=== PATIENT | male | born 1950 | race African-American/Black ===

== ENCOUNTER 2021-11-15 13:39 | Inpatient (IN) | payer OTHER ==
[2021-11-15 14:10] LABS: Absolute Lymphocytes (CBC) 1.2 K/uL (0.7-4.9); Hematocrit 37.8 % (39.6-49.0); Lymphocytes % 13.1 % (15.3-44.8); MCV 86.4 fL (80-100); MPV 9.3 fL (7.6-11.3); RBC Red Blood Cell Count 4.38 M/uL (4.33-5.43)
[2021-11-15 14:12] LABS: Protime INR 1.16
--- NOTE | 2021-11-15 14:29 | RAD REPORT ---
EXAM DESCRIPTION: RAD - Chest Single View - 11/15/2021 2:20 pm CLINICAL HISTORY: syncope COMPARISON: No comparisons FINDINGS: Lines: None. Lungs: No evidence of edema or pneumonia. Pleural: No significant pleural effusions or pneumothorax. Cardiac: The heart size is within normal limits. Bones: No acute fractures. Other: IMPRESSION: No acute cardiopulmonary disease.
[2021-11-15 14:34] LABS: Albumin 3.4 g/dL (3.4-5.0); Bilirubin Direct 0.2 mg/dL (0-0.2); Bilirubin Total 0.5 mg/dL (0.2-1.0); Magnesium 2.2 mg/dL (1.8-2.4); Protein, Total 6.8 g/dL (6.4-8.2)
[2021-11-15 14:35] LABS: Potassium 2.8 mmol/L (3.5-5.1); Troponin High Sensitivity 159.9 pg/mL (<58.9)
[2021-11-15] MEDS ORDERED: NA CHLORIDE 0.9% 1,000 ML ONE (15:02)
--- NOTE | 2021-11-15 15:20 | RAD REPORT ---
EXAM DESCRIPTION: CT - Head Brain Wo Cont - 11/15/2021 3:08 pm CLINICAL HISTORY: Syncope, simple, normal neuro exam COMPARISON: No comparisons TECHNIQUE: All CT scans are performed using dose optimization technique as appropriate and may inclu de automated exposure control or mA/KV adjustment according to patient size. FINDINGS: No intracranial hemorrhage, hydrocephalus or extra-axial fluid collection.No areas of brai n edema or evidence of midline shift. The paranasal sinuses and mastoids are clear. The calvarium is intact. IMPRESSION: No acute intracranial abnormality.
[2021-11-15 16:06] LABS: Urine Blood Trace-lysed (Negative); Urine Glucose Negative (Negative); Urine Protein Trace (Negative); Urine Specific Gravity 1.015 (1.005-1.030); Urine pH 6.5 (5.0-7.0)
[2021-11-15 16:22] LABS: Urine Bacteria <20 /HPF (NONE SEEN); Urine Mucus LIGHT /HPF (NONE SEEN); Urine RBC <5 /HPF (NONE SEEN)
--- NOTE | 2021-11-15 16:22 | EDPHYS ---
Physician Documentation [facility] Name: Colten Nicole Age: 71 yrs Sex: Male : 1950 Arrival Date: 11/15/2021 Time: 13:43 Bed 14 Private MD: ED Physician Justus Boudreaux HPI: 11/15 13:55 This 71 yrs old Black Male presents to ER via Ambulatory with complaints of Syncope. cp 13:55 The patient has experienced syncope, collapsed, lost consciousness. Onset: The cp symptoms/episode began/occurred just prior to arrival. Duration: This was a single episode, that lasted an unknown period of time. 13:55 Context: the episode(s) was witnessed, by family, , occurred outdoors, on beach, cp occurred while the patient was walking, back to vehicle. Just prior to the episode the patient experienced no apparent symptoms. 13:55 Associated injury: The patient did not suffer any apparent associated injury. cp Associated signs and symptoms: Pertinent positives: urinary incontinence, Pertinent negatives: abdominal pain, chest pain, confusion, diarrhea, dizziness, headache, palpitations, shortness of breath, weakness. Current symptoms: Currently, the patient is not experiencing any symptoms, the patient feels back to baseline. Historical: - Allergies: 14:37 No Known Allergies; ph - Home Meds: 14:37 telmisartan 80 mg oral tab [Active]; diltiazem HCl 120 mg Oral tab [Active]; sucralfate ph 1 gram Oral tab [Active]; omeprazole 40 mg Oral cpDR [Active]; simvastatin 10 mg Oral tab [Active]; anastrozole 1 mg oral tab [Active]; - PMHx: 14:37 Hypertensive disorder; Hypercholesterolemia; ph - Immunization history:: Adult Immunizations unknown. - Social history:: Smoking status: Patient denies any tobacco usage or history of. Patient/guardian denies using alcohol. ROS: 14:00 Constitutional: Negative for body aches, chills, fever, poor PO intake. cp 14:00 Cardiovascular: Negative for chest pain, edema, palpitations. cp 14:00 Respiratory: Negative for cough, shortness of breath, wheezing. 14:00 Abdomen/GI: Negative for abdominal pain, nausea, vomiting, and diarrhea. Exam: 14:05 Constitutional: The patient appears in no acute distress, alert, awake, cp non-diaphoretic, non-toxic, well developed, well nourished. 14:05 Head/Face: Normocephalic, atraumatic. cp 14:05 Eyes: Periorbital structures: appear normal, Pupils: equal, round, and reactive to light and accomodation, Extraocular movements: intact throughout, Conjunctiva: normal, no exudate, no injection, Sclera: no appreciated abnormality, Lids and lashes: appear normal, bilaterally. 14:05 ENT: External ear(s): are unremarkable, Ear canal(s): are normal, clear, TM's: dullness, bilaterally, Nose: is normal, Mouth: Lips: moist, Oral mucosa: pink and intact, moist, Posterior pharynx: Airway: no evidence of obstruction, patent. 14:05 Neck: ROM/movement: is normal, is supple, without pain, no range of motions limitations. 14:05 Chest/axilla: Inspection: normal, Palpation: is normal, no crepitus, no tenderness. 14:05 Cardiovascular: Rate: normal, Rhythm: regular, Edema: is not appreciated, JVD: is not appreciated. 14:05 Respiratory: the patient does not display signs of respiratory distress, Respirations: normal, no use of accessory muscles, no retractions, labored breathing, is not present, Breath sounds: are clear throughout, no decreased breath sounds, no stridor, no wheezing. 14:05 Abdomen/GI: Inspection: abdomen appears normal, Bowel sounds: active, all quadrants, Palpation: abdomen is soft and non-tender, in all quadrants, rebound tenderness, is not appreciated, voluntary guarding, is not appreciated, involuntary guarding, is not appreciated. 14:05 Back: pain, is absent, ROM is normal. 14:05 Neuro: Orientation: to person, place \\T\\ time. Mentation: is normal, Cerebellar function: is grossly normal, Motor: moves all fours, strength is normal, Sensation: is normal. 14:37 ECG was reviewed by the Attending Physician. cp 16:30 : Rectal exam: Rectal tone: normal, Stool: brown, Guaiac testing: results were cp negative for occult blood. Vital Signs: 13:44 BP 116 / 55; Pulse 78; Resp 18; Temp 98.8; Pulse Ox 96% on R/A; ph 14:43 BP 120 / 64; Pulse 73; Resp 18; Pulse Ox 98% on R/A; ph 16:00 BP 122 / 65; Pulse 72; Resp 18; Pulse Ox 98% on R/A; ph 16:24 Weight 97.52 kg; Height 5 ft. 9 in. (175.26 cm); ph 17:04 BP 126 / 62; Pulse 87; Resp 16; Pulse Ox 99% on R/A; ph 18:00 BP 123 / 58; Pulse 79; Resp 18; Pulse Ox 98% on R/A; ph 16:24 Body Mass Index 31.75 (97.52 kg, 175.26 cm) ph MDM: 13:54 Patient medically screened. cp 14:00 Differential Diagnosis: aortic aneurysm, cardiac arrhythmia, GI bleed, seizure, sepsis, cp vasovagal episode. 16:20 Data reviewed: vital signs, nurses notes, lab test result(s), EKG, radiologic studies, cp CT scan, plain films. 16:20 Test interpretation: by ED physician or midlevel provider: ECG, plain radiologic cp studies. Counseling: I had a detailed discussion with the patient and/or guardian regarding: the historical points, exam findings, and any diagnostic results supporting the discharge/admit diagnosis, lab results, radiology results, the need for further work-up and treatment in the hospital. 11/15 13:54 Order name: Basic Metabolic Panel; Complete Time: 14:48 cp 11/15 14:48 Interpretation: Normal except: K 2.8; BUN 27; CRE 2.22; GFR 31. cp 11/15 13:54 Order name: CBC with Diff; Complete Time: 14:48 cp 11/15 13:54 Order name: LFT's; Complete Time: 14:48 cp 11/15 13:54 Order name: Magnesium; Complete Time: 14:48 cp 11/15 13:54 Order name: NT PRO-BNP; Complete Time: 14:48 cp 11/15 13:54 Order name: PT-INR; Complete Time: 14:48 cp 11/15 13:54 Order name: Troponin HS; Complete Time: 14:48 cp 11/15 14:48 Interpretation: Abnormal: Troponin HS 159.9. cp 11/15 13:54 Order name: Urine Microscopic Only cp 11/15 13:54 Order name: Influenza Screen (a \\T\\ B); Complete Time: 14:48 11/15 13:54 Order name: COVID-19 SARS RT PCR (Document "Date of Onset" if Symptomatic); Complete cp Time: 16:02 11/15 16:06 Order name: Urine Dipstick-Ancillary; Complete Time: 16:14 [facility] 11/15 17:10 Order name: Creatine Phosphokinase [facility] 11/15 17:10 Order name: C-Reactive Protein [facility] 11/15 17:10 Order name: C-Reactive Protein [facility] 11/15 13:54 Order name: XRAY Chest (1 view); Complete Time: 14:48 11/15 14:49 Order name: CT Head Brain wo Cont; Complete Time: 15:22 11/15 15:22 Interpretation: Report reviewed. 11/15 17:10 Order name: CBC with Automated Diff [facility] 11/15 17:10 Order name: CBC with Automated Diff [facility] 11/15 17:10 Order name: Comprehensive Metabolic Panel [facility] 11/15 17:10 Order name: Comprehensive Metabolic Panel [facility] 11/15 17:10 Order name: Lipid Profile [facility] 11/15 17:10 Order name: Lipid Profile [facility] 11/15 17:13 Order name: Echo with Doppler [facility] 11/15 17:13 Order name: Magnesium [facility] 11/15 17:13 Order name: Thyroid Stimulating Hormone [facility] 11/15 17:13 Order name: UR CREAT [facility] 11/15 17:13 Order name: UR SODIUM [facility] 11/15 17:13 Order name: Troponin High Sensitivity [facility] 11/15 17:13 Order name: Troponin High Sensitivity [facility] 11/15 17:13 Order name: Troponin High Sensitivity [facility] 11/15 13:54 Order name: EKG; Complete Time: 13:55 11/15 13:54 Order name: Cardiac monitoring; Complete Time: 14:17 11/15 13:54 Order name: EKG - Nurse/Tech; Complete Time: 14:37 11/15 13:54 Order name: IV Saline Lock; Complete Time: 14:17 11/15 13:54 Order name: Labs collected and sent; Complete Time: 14:17 11/15 13:54 Order name: O2 Per Protocol; Complete Time: 14:17 11/15 13:54 Order name: O2 Sat Monitoring; Complete Time: 14:16 cp 11/15 13:54 Order name: Urine Dipstick-Ancillary (obtain specimen); Complete Time: 16:18 cp 11/15 17:10 Order name: CONS Physician Consult [facility] 11/15 17:10 Order name: Heart Healthy [facility] EC:37 Rate is 76 beats/min. Rhythm is regular. HI interval is prolonged at 220 msec. QRS cp interval is prolonged at 106 msec. QT interval is normal. T waves are Inverted in lead aVR. Interpreted by me. Reviewed by me. Administered Medications: 16:18 Drug: NS 0.9% 1000 ml Route: IV; Rate: 75 ml/hr; Site: left antecubital; ph 18:52 Follow up: Response: No adverse reaction; IV Status: Infusion continued upon admission ph 16:18 Drug: NS 0.9% 500 ml Route: IV; Rate: bolus; Site: left antecubital; ph 18:51 Follow up: Response: No adverse reaction; IV Status: Completed infusion; IV Intake: ph 500ml 16:50 Drug: Aspirin Chewable Tablet 324 mg Route: PO; ph 18:51 Follow up: Response: No adverse reaction ph 16:50 Drug: Potassium Chloride 20 mEq Route: IV; Rate: calculated rate; Site: left ph antecubital; 18:50 Follow up: Response: No adverse reaction; IV Status: Completed infusion ph 16:50 Drug: Potassium Effervescent Tablet 50 mEq Route: PO; ph 18:51 Follow up: Response: No adverse reaction ph 16:50 Drug: Lovenox (enoxaparin) 1 mg/kg Route: Sub-Q; Site: right lower abdomen; ph 18:50 Follow up: Response: No adverse reaction ph Disposition Summary: 11/15/21 16:22 Hospitalization Ordered Hospitalization Status: Inpatient Admission cp Provider: Shanika Gant cp Location: Telemetry/MedSurg (Inpatient) cp Condition: Stable cp Problem: new cp Symptoms: have improved cp Bed/Room Type: Standard cp Room Assignment: 417(11/15/21 18:19) bd Diagnosis - Syncope cp - Acute kidney failure, unspecified cp Forms: - Medication Reconciliation Form cp - SBAR form cp Addendum: 11/17/2021 07:12 Co-signature as Attending Physician, Justus tovar Signatures: Dispatcher [employer] EDBrittany Ernst Roman, MD MD rn [place], TOOL DESIGN CHECKER-C TOOL DESIGN CHECKER-Cla1 Ana Rosa Guevara RN RN ph Radha, Lenny, SELMA HAHN cp Corrections: (The following items were deleted from the chart) 11/15 18:19 16:22 cp bd
--- NOTE | 2021-11-15 16:22 | ER ---
Nurse's Notes [facility] Name: Colten Nicole Age: 71 yrs Sex: Male : 1950 Arrival Date: 11/15/2021 Time: 13:43 Bed 14 Private MD: Diagnosis: Syncope;Acute kidney failure, unspecified Presentation: 11/15 13:44 Chief complaint: EMS states: Pt had a witnessed [place]opal [place], ph friend states that he was feeling lightheaded so they were trying to get into the car in the air conditioning when he passed out. Initial BP 86/52, 18 G IV started to LAC and fluids given, BP REBEAMER 120/68. Coronavirus screen: Vaccine status: Patient reports receiving the 2nd dose of the covid vaccine. Ebola Screen: No symptoms or risks identified at this time. Initial Sepsis Screen: Does the patient meet any 2 criteria? No. Patient's initial sepsis screen is negative. Does the patient have a suspected source of infection? No. Patient's initial sepsis screen is negative. Risk Assessment: Do you want to hurt yourself or someone else? Patient reports no desire to harm self or others. 13:44 Method Of Arrival: Ambulatory ph 13:44 Acuity: TAWNY 3 ph 14:43 Onset of symptoms was November 15, 2021. ph Historical: - Allergies: 14:37 No Known Allergies; ph - Home Meds: 14:37 telmisartan 80 mg oral tab [Active]; diltiazem HCl 120 mg Oral tab [Active]; sucralfate ph 1 gram Oral tab [Active]; omeprazole 40 mg Oral cpDR [Active]; simvastatin 10 mg Oral tab [Active]; anastrozole 1 mg oral tab [Active]; - PMHx: 14:37 Hypertensive disorder; Hypercholesterolemia; ph - Immunization history:: Adult Immunizations unknown. - Social history:: Smoking status: Patient denies any tobacco usage or history of. Patient/guardian denies using alcohol. Screenin:41 Abuse screen: Denies threats or abuse. Denies injuries from another. Nutritional ph screening: No deficits noted. Tuberculosis screening: No symptoms or risk factors identified. Fall Risk None identified. Assessment: 14:43 General: Appears in no apparent distress. comfortable, Behavior is calm, cooperative, ph appropriate for age, Denies fever, feeling ill. Pain: Denies pain. Neuro: Level of Consciousness is awake, alert, obeys commands, Oriented to person, place, time, situation. Cardiovascular: Reports syncope, Denies chest pain, nausea, shortness of breath, Capillary refill < 3 seconds in bilateral fingers Patient's skin is warm and dry. Respiratory: Airway is patent Respiratory effort is even, unlabored, Respiratory pattern is regular, symmetrical. GI: No signs and/or symptoms were reported involving the gastrointestinal system. EENT: Reports nasal congestion nasal discharge. Derm: Skin is intact, is healthy with good turgor, Skin is pink, warm \T\ dry. 16:30 Reassessment: Patient appears in no apparent distress at this time. Patient and/or ph family updated on plan of care and expected duration. Pain level reassessed. Patient is alert, oriented x 3, equal unlabored respirations, skin warm/dry/pink. 18:00 Reassessment: Patient appears in no apparent distress at this time. Patient and/or ph family updated on plan of care and expected duration. Pain level reassessed. Patient is alert, oriented x 3, equal unlabored respirations, skin warm/dry/pink. Awaiting room assignment, family at bedside Patient denies pain at this time. 18:49 Cardiovascular: Rhythm is regular. ph Vital Signs: 13:44 BP 116 / 55; Pulse 78; Resp 18; Temp 98.8; Pulse Ox 96% on R/A; ph 14:43 BP 120 / 64; Pulse 73; Resp 18; Pulse Ox 98% on R/A; ph 16:00 BP 122 / 65; Pulse 72; Resp 18; Pulse Ox 98% on R/A; ph 16:24 Weight 97.52 kg; Height 5 ft. 9 in. (175.26 cm); ph 17:04 BP 126 / 62; Pulse 87; Resp 16; Pulse Ox 99% on R/A; ph 18:00 BP 123 / 58; Pulse 79; Resp 18; Pulse Ox 98% on R/A; ph 16:24 Body Mass Index 31.75 (97.52 kg, 175.26 cm) ph ED Course: 13:43 Patient arrived in ED. ph 13:47 Lenny Garcia PA is PHCP. cp 13:47 Justus Boudreaux MD is Attending Physician. cp 13:51 Triage completed. ph 14:16 Ana Rosa Guevara, RN is Primary Nurse. ph 14:22 XRAY Chest (1 view) In Process Unspecified. EDMS 14:37 Arm band placed on Patient placed in an exam room. ph 14:38 EKG done, by ED staff, reviewed by Lenny HAHN. jw7 14:41 Patient has correct armband on for positive identification. Placed in gown. Bed in low ph position. Call light in reach. Side rails up X2. Client placed on continuous cardiac and pulse oximetry monitoring. NIBP monitoring applied. 15:00 Maintain EMS IV. Dressing intact. Good blood return noted. Site clean \T\ dry. Gauge \T\ ph site: 18 LAC. IV Flushed left antecubital with 5 ml normal saline. 15:10 CT Head Brain wo Cont In Process Unspecified. EDMS 16:21 Shanika Gant MD is Hospitalizing Provider. cp 18:48 No provider procedures requiring assistance completed. Patient admitted, IV remains in ph place. Administered Medications: 16:18 Drug: NS 0.9% 1000 ml Route: IV; Rate: 75 ml/hr; Site: left antecubital; ph 18:52 Follow up: Response: No adverse reaction; IV Status: Infusion continued upon admission ph 16:18 Drug: NS 0.9% 500 ml Route: IV; Rate: bolus; Site: left antecubital; ph 18:51 Follow up: Response: No adverse reaction; IV Status: Completed infusion; IV Intake: ph 500ml 16:50 Drug: Aspirin Chewable Tablet 324 mg Route: PO; ph 18:51 Follow up: Response: No adverse reaction ph 16:50 Drug: Potassium Chloride 20 mEq Route: IV; Rate: calculated rate; Site: left ph antecubital; 18:50 Follow up: Response: No adverse reaction; IV Status: Completed infusion ph 16:50 Drug: Potassium Effervescent Tablet 50 mEq Route: PO; ph 18:51 Follow up: Response: No adverse reaction ph 16:50 Drug: Lovenox (enoxaparin) 1 mg/kg Route: Sub-Q; Site: right lower abdomen; ph 18:50 Follow up: Response: No adverse reaction ph Medication: 14:41 VIS not applicable for this client. ph Intake: 18:51 IV: 500ml; Total: 500ml. ph Outcome: 16:22 Decision to Hospitalize by Provider. cp 20:20 Admitted to Med/surg accompanied by tech. ke1 20:20 Condition: stable 20:20 Instructed on the need for admit. 20:21 Patient left the ED. ke1 Signatures: Dispatcher [employer] Ana Rosa Zuleta, RN RN ph Lenny Garcia PA PA cp Waits, Jodi [id number] Kenny Cervantes RN RN ke1
[2021-11-15] MEDS ORDERED: ASPIRIN 81 MG CHEWABLE TABLET ONE (16:36)
[2021-11-15] MEDS ORDERED: KCL 20 MEQ/100 mL IVPB 100 ML IV ONE (16:36)
[2021-11-15] MEDS ORDERED: ENOXAPARIN 100 MG/ML SYR SQ ONE (16:37)
--- NOTE | 2021-11-15 16:57 | P.HP ---
Certification for Inpatient With expected LOS: >2 Midnights Patient will require the following post-hospital care: None Practitioner: I am a practitioner with admitting privileges, knowledge of patient current condition, hospital course, and medical plan of care. Services: Services provided to patient in accordance with Admission requirements found in Title 42 Section 412.3 of the Code of Federal Regulations Patient History Date of Service: 11/15/21 Reason for admission: Syncope History of Present Illness: 72-year-old AA male with past medical history of hypertension, hyperlipidemia and GERD prostate cancer s/p resection on hormonal therapy with anastrozole presented after developing [place]. Patient states he felt heat with flushing prior to passing out. He was on the ground for a few minutes as witnessed by the before arrival of EMS and he was brought to the emergency room. Per EMS report patient blood pressure was low with systolic in the 70s but improved with IV fluid and by the time of arrival in the ED blood pressure was in the 100s. EKG shows normal sinus rhythm with borderline first- degree AV block. Head CT was negative. He was noted with elevated creatinine to 2.2 potassium of 2.8. His troponin was mildly elevated at 159. COVID screen is positive. Patient is conversant denies any chest pain. He states he has been nasal congestion, decreased appetite and decreased p.o. intake since the last 1 week. He also admits to sore throat feeling. His also have similar sore throat feeling. He states his blood pressure medications include a diuretics. His home blood pressure meds have been reviewed today. He denies any prior history of cardiac disease. He denies any diarrhea. He states he has received 2 COVID shots as well as a booster. He has been admitted for syncope work-up having upper respiratory tract - Past Medical/Surgical History -: Hypertension -: Hyperlipidemia -: GERD -: Prostate cancer -: Prostate resection - Family History Family History: Reviewed- Non-Contributory - Social History Smoking Status: Never smoker Smoking therapy provided: No Patient receptive to therapy: No Alcohol use: No CD- Drugs: No Place of Residence: Home Review of Systems General: Sweats, Weakness, Malaise ENT: Throat Pain Respiratory: Cough, Dry Gastrointestinal: Nausea Physical Examination - Physical Exam General: Alert, In no apparent distress, Oriented x3, Obese HEENT: Atraumatic, Normocephalic, PERRLA Neck: Supple, 2+ carotid pulse no bruit, JVD not distended Respiratory: Clear to auscultation bilaterally, Normal air movement Cardiovascular: No edema, Regular rate/rhythm, Normal S1 S2 Gastrointestinal: Normal bowel sounds, Soft and benign, Non-distended Musculoskeletal: No clubbing, No swelling Integumentary: No rashes, No breakdown - Studies Laboratory Data (last 24 hrs) 11/15/21 13:59: PT 12.8 H, INR 1.16 11/15/21 13:59: WBC 9.5, Hgb 12.8 L, Hct 37.8 L, Plt Count 214 11/15/21 13:59: Sodium 136, Potassium 2.8 L*, BUN 27 H, Creatinine 2.22 H, Glucose 99, Magnesium 2.2, Total Bilirubin 0.5, AST 57 H, ALT 43, Alkaline Phosphatase 66 Microbiology Data (last 24 hrs): 11/15/21 14:00 Nasopharnyx Influenza Type A Antigen Screen - Final 11/15/21 14:00 Nasopharnyx Influenza Type B Antigen Screen - Final Assessment and Plan - Problems (Diagnosis) (1) Bronchitis due to COVID-19 virus Current Visit: Yes Status: Acute (2) Syncope and collapse Current Visit: Yes Status: Acute Discharge Plan: Home - Advance Directives Does patient have a Living Will: No Does patient have a Durable POA for Healthcare: No - Code Status/Comfort Care Code Status: Full Code Physician Review: Patient Assessed, Agree with Above Assessment and Plan Physician Review Additional Text: EKGnormal sinus rhythm, borderline first-degree AV block, no ST segment changes Head CTno acute intracranial abnormality Impression Acute COVID bronchitis Syncope Hypotensiondue to volume depletion in setting of blood pressure medication and diuretic use Acute kidney injury Hypokalemiadue to HCTZ use Elevated troponin GERD HLD History of prostate cancerstatus post resectionin remission Plan Will admit patient to inpatient status Will start gentle IV fluid with potassium replacement Obtain magnesium level replete Start empirical steroids Place in isolation DuoNebs as needed wheeze Hold blood pressure medications for now since significant hypotension during period of syncope Resume anastrozole for history of prostate cancer Subcutaneous Lovenox for DVT prophylaxis Formal cardiology consult in a.m. Obtain echocardiogram Advance directivefull code Time Spent Managing Pts Care (In Minutes): 70
[2021-11-15] MEDS ORDERED: MORPHINE 2 MG/ML SYR IV PRN (17:02)
[2021-11-15] MEDS ORDERED: ONDANSETRON 4 MG/2 ML VIAL IV PRN (17:02)
[2021-11-15] MEDS ORDERED: GUAIFENESIN/DM 5 ML UCUP PO PRN (17:08)
[2021-11-15] MEDS ORDERED: Oxycodone HCl/Acetaminophen 1 TAB TAB PO PRN (17:08)
[2021-11-15] MEDS ORDERED: HYDRALAZINE HCL 20 MG/ML VIAL IV PRN (17:08)
[2021-11-15] MEDS ORDERED: MELATONIN 5 MG TABLET PO PRN (17:08)
[2021-11-15] MEDS ORDERED: POTASSIUM 25 MEQ EFFERV TAB PO ONE (17:10)
[2021-11-15] MEDS: ENOXAPARIN 40 MG/0.4 ML SQ SCH (18:00)
[2021-11-15 19:56] VITALS: BMI 31.7
[2021-11-15 20:33] LABS: Troponin High Sensitivity 155.4 pg/mL (<58.9)
[2021-11-15] MEDS: GUAIFENESIN 600 MG SA TAB PO SCH (22:06)
[2021-11-15] MEDS: Ringers Lactate 1,000 ML IV SCH (22:06)
[2021-11-15] MEDS: FAMOTIDINE 20 MG/2 ML VIAL IV SCH (22:07)
[2021-11-15] MEDS: METHYLPREDNISOLONE 125 MG INJ IV SCH (22:07)
[2021-11-15 22:32] LABS: Magnesium 2.2 mg/dL (1.8-2.4); Thyroid Stimulating Hormone 2.24 uIU/mL (0.360-3.740)
[2021-11-16] MEDS: Ringers Lactate 1,000 ML IV SCH ×2 (05:43→10:00)
[2021-11-16 06:14] LABS: Absolute Lymphocytes (CBC) 0.9 K/uL (0.7-4.9); Lymphocytes % 17.2 % (15.3-44.8); MCV 85.2 fL (80-100); MPV 9.5 fL (7.6-11.3); RBC Red Blood Cell Count 4.46 M/uL (4.33-5.43)
[2021-11-16 06:30] LABS: Albumin 3.3 g/dL (3.4-5.0); Bilirubin Total 0.4 mg/dL (0.2-1.0); C-Reactive Protein 76.3 mg/L (<3.00); Potassium 3.8 mmol/L (3.5-5.1); Protein, Total 7.1 g/dL (6.4-8.2)
[2021-11-16] MEDS ORDERED: ASPIRIN EC 81 MG TAB PO SCH (09:00)
[2021-11-16] MEDS ORDERED: ANASTROZOLE 1 MG TAB PO SCH (09:00)
[2021-11-16] MEDS: GUAIFENESIN 600 MG SA TAB PO SCH (09:00)
[2021-11-16] MEDS ORDERED: POTASSIUM CL SA 10 MEQ TAB PO ONE (09:00)
[2021-11-16] MEDS: FAMOTIDINE 20 MG/2 ML VIAL IV SCH (09:00)
[2021-11-16] MEDS: METHYLPREDNISOLONE 125 MG INJ IV SCH (09:01)
[2021-11-16 10:28] VITALS: O2SAT 96
--- NOTE | 2021-11-16 12:48 | P.PN ---
Subjective Date of Service: 11/16/21 Chief Complaint: Syncope Subjective: No new changes, No C/O voiced, Improving Physical Examination - Vital Signs Temperature: 97.2 F Blood Pressure: 153/80 Pulse: 76 Respirations: 18 Pulse Ox (%): 96 - Studies Laboratory Data (last 24 hrs) 11/15/21 13:59: PT 12.8 H, INR 1.16 11/15/21 13:59: WBC 9.5, Hgb 12.8 L, Hct 37.8 L, Plt Count 214 11/15/21 13:59: Sodium 136, Potassium 2.8 L*, BUN 27 H, Creatinine 2.22 H, Glucose 99, Magnesium 2.2, Total Bilirubin 0.5, AST 57 H, ALT 43, Alkaline Phosphatase 66 Microbiology Data (last 24 hrs): 11/15/21 14:00 Nasopharnyx Influenza Type A Antigen Screen - Final 11/15/21 14:00 Nasopharnyx Influenza Type B Antigen Screen - Final Assessment And Plan - Current Problems (Diagnosis) (1) Bronchitis due to COVID-19 virus Current Visit: Yes Status: Acute (2) Syncope and collapse Current Visit: Yes Status: Acute Physician Review: Patient Assessed, Agree with Above Assessment and Plan Physician Review Additional Text: - Physical Exam General: Alert, In no apparent distress, Oriented x3, Obese HEENT: Atraumatic, Normocephalic, PERRLA Neck: Supple, 2+ carotid pulse no bruit, JVD not distended Respiratory: Clear to auscultation bilaterally, Normal air movement Cardiovascular: No edema, Regular rate/rhythm, Normal S1 S2 Gastrointestinal: Normal bowel sounds, Soft and benign, Non-distended Musculoskeletal: No clubbing, No swelling Integumentary: No rashes, No breakdown EKGnormal sinus rhythm, borderline first-degree AV block, no ST segment changes Head CTno acute intracranial abnormality Impression Acute COVID bronchitis Syncope Hypotensiondue to volume depletion in setting of blood pressure medication and diuretic use Acute kidney injury Hypokalemiadue to HCTZ use Elevated troponin GERD HLD History of prostate cancerstatus post resectionin remission Plan Clinically improving Evaluated by cardiology, follow pending echocardiogram Can resume blood pressure regimen since improved now Tolerating p.o. well Continue empirical Decadron for COVID Creatinine improved back to normal Plan for discharge if normal echo today
--- NOTE | 2021-11-16 15:26 | CON ---
Admitted to Dr. Gant with syncope. History Of Present Illness: The patient has a history of hypertension and dyslipidemia and has had s yncope before because of a stroke many years ago. This episode happened after he was dehydrated. It was sudden and lasted about 2 minutes. Did not have any symptoms before or after the syncope. It w as not before pre or postictal. Denied chest pain, nausea, vomiting, diaphoresis, PND, orthopnea, pe sultana edema, palpitations, syncopal. Past Medical History: As stated above. Allergies: NONE. Review of Systems: Negative. Social History: Negative. Family History: Negative. Medications: At home include diltiazem, , sucralfate, omeprazole, anastrozole, and simvast atin. Physical Examination: Vital Signs: Stable, afebrile. HEENT: Negative. Neck: Supple without any bruit, lymphadenopathy, JVD, or thyromegaly. Chest: Clear to auscultation and percussion. Cardiac: Revealed a regular rhythm and rate. No murmurs, gallops, or rubs. Abdomen: Benign. Extremities: Revealed no clubbing, cyanosis, or edema. Diagnostic Data: Include a normal x-ray, normal head CT. His creatinine was elevated when he first came in at 2.22, now is 1.21 after hydration. Rest of his blood work was unremarkable except for low potassium that was supplemented. His CPK was 3129 with troponin 159. His C-reactive protein was 76 .3. I think this is all consistent with rhabdomyolysis. He also has COVID. Impression And Plan: Syncope secondary to dehydration from COVID and rhabdomyolysis. No need for ex tensive cardiac workup. There is an echocardiogram pending and I agree with that. If his echocardio gram shows any wall motion abnormalities, we will change our approach, but for now, we will continue his present regimen. This is not an acute coronary syndrome. Needs to be hydrated and potassium sup plemented. We will continue to follow as needed. DOLORES/HARRISON Voice ID: [id number] Report ID: [id number]
[2021-11-16] MEDS: ENOXAPARIN 40 MG/0.4 ML SQ SCH (16:45)
--- NOTE | 2021-11-16 16:55 | P.DS ---
Admission Date: 11/15/21 Discharge Date: 11/16/21 Disposition: ROUTINE DISCHARGE Discharge Condition: FAIR Reason for Admission: Syncope - Problems (1) Bronchitis due to COVID-19 virus Current Visit: Yes Status: Acute (2) Syncope and collapse Current Visit: Yes Status: Acute Brief History of Present Illness: 72-year-old AA male with past medical history of hypertension, hyperlipidemia and GERD prostate cancer s/p resection on hormonal therapy with anastrozole presented [place]. Patient states he felt heat with flushing prior to passing out. He was on the ground for a few minutes as witnessed by the before arrival of EMS and he was brought to the emergency room. Per EMS report patient blood pressure was low with systolic in the 70s but improved with IV fluid and by the time of arrival in the ED blood pressure was in the 100s. EKG shows normal sinus rhythm with borderline first- degree AV block. Head CT was negative. He was noted with elevated creatinine to 2.2 potassium of 2.8. His troponin was mildly elevated at 159. COVID screen is positive. Patient is conversant denies any chest pain. He states he has been nasal congestion, decreased appetite and decreased p.o. intake since the last 1 week. He also admits to sore throat feeling. His also have similar sore throat feeling. He states his blood pressure medications include a diuretics. His home blood pressure meds have been reviewed today. He denies any prior history of cardiac disease. He denies any diarrhea. He states he has received 2 COVID shots as well as a booster. He has been admitted for syncope work-up having upper respiratory tract Hospital Course: Patient was admitted for syncope felt due to volume depletion from blood pressure medication recent diuretic as well as present of anorexia induced by COVID bronchitis. His creatinine was initially elevated but improved with IV fluid to 1.2 now. His initial troponin was mildly elevated. He was evaluated by cardiology given no EKG or telemetry changes he was felt it was due to stress related ischemia. Echocardiogram obtained shows normal ejection fraction with no valve abnormality. He was treated with COVID with empirical steroids as well as antitussives. He remained nonhypoxic. He will be discharged home today to follow-up with his PCP in 1 week. Patient telmisartanhCTZ was held given his recent volume depletion. - Physical Exam General: Alert, In no apparent distress, Oriented x3, Obese HEENT: Atraumatic, Normocephalic, PERRLA Neck: Supple, 2+ carotid pulse no bruit, JVD not distended Respiratory: Clear to auscultation bilaterally, Normal air movement Cardiovascular: No edema, Regular rate/rhythm, Normal S1 S2 Gastrointestinal: Normal bowel sounds, Soft and benign, Non-distended Musculoskeletal: No clubbing, No swelling Integumentary: No rashes, No breakdown Vital Signs/Physical Exam: Temp Pulse Resp BP Pulse Ox 97.2 F 76 18 153/80 H 96 11/16/21 12:48 11/16/21 12:48 11/16/21 12:48 11/16/21 12:48 11/16/21 12:48 Laboratory Data at Discharge: WBC 5.3 K/uL (4.3-10.9) D 11/16/21 05:34 Hgb 13.2 g/dL (13.6-17.9) L 11/16/21 05:34 Hct 38.0 % (39.6-49.0) L 11/16/21 05:34 Plt Count 215 K/uL (152-406) 11/16/21 05:34 PT 12.8 SECONDS (9.5-12.5) H 11/15/21 13:59 INR 1.16 11/15/21 13:59 Sodium 136 mmol/L (136-145) 11/16/21 05:34 Potassium 3.8 mmol/L (3.5-5.1) 11/16/21 05:34 BUN 19 mg/dL (7-18) H 11/16/21 05:34 Creatinine 1.21 mg/dL (0.55-1.3) D 11/16/21 05:34 Glucose 128 mg/dL (74-106) H 11/16/21 05:34 Magnesium 2.2 mg/dL (1.8-2.4) 11/15/21 20:04 Total Bilirubin 0.4 mg/dL (0.2-1.0) 11/16/21 05:34 AST 53 U/L (15-37) H 11/16/21 05:34 ALT 45 U/L (12-78) 11/16/21 05:34 Alkaline Phosphatase 68 U/L (45-117) 11/16/21 05:34 Triglycerides 91 mg/dL (<150) 11/16/21 05:34 Cholesterol 159 mg/dL (<200) 11/16/21 05:34 HDL Cholesterol 40 mg/dL (40-60) 11/16/21 05:34 Cholesterol/HDL Ratio 3.98 11/16/21 05:34 Home Medications: Anastrozole 1 mg PO DAILY 11/15/21 Diltiazem HCl [Diltiazem 12Hr ER] 120 mg PO DAILY 11/15/21 Ergocalciferol (Vitamin D2) [Vitamin D2] 1,250 mcg DAILY 11/15/21 Omeprazole [Prilosec] 40 mg PO DAILY 11/15/21 Simvastatin 1 mg DAILY 11/15/21 Sucralfate [Carafate*] 1 gm DAILY 11/15/21 Aspirin [Aspirin EC 81 MG] 81 mg PO DAILY #30 tablet. 11/16/21 Benzonatate [Tessalon Perle] 200 mg PO TID PRN #21 cap 11/16/21 Dexamethasone [Decadron] 6 mg PO BID #8 tablet 11/16/21 New Medications: Aspirin [Aspirin EC 81 MG] 81 mg PO DAILY #30 tablet. Dexamethasone [Decadron] 6 mg PO BID #8 tablet Benzonatate [Tessalon Perle] 200 mg PO TID PRN #21 cap PRN Reason: Cough Diet: Regular Followup: NONE,NONE [Primary Care Provider] - Time spent managing pt's care (in minutes): 35
[2021-11-16 16:56] VITALS: BP 147/81; TEMP 97.6
--- NOTE | 2021-11-17 07:42 | ECHO ---
HEIGHT: 5 ft 9 in WEIGHT: 214 lb 15.917 oz DATE OF STUDY: 11/16/[address]: Shanika Gant MD 2-DIMENSIONAL: YES M.MODE: YES DOPPLER: YES COLOR FLOW: YES TDS: PORTABLE: YES DEFINITY: BUBBLE STUDY: DIAGNOSIS: CEREBRAL VASCULAR ACCIDENT CARDIAC HISTORY: CATHERIZATION: SURGERY: PROSTHETIC VALVE: PACEMAKER: MEASUREMENTS (cm) DIASTOLIC (NORMALS) SYSTOLIC (NORMALS) IVSd 1.0 (0.6-1.2) LA Diam 3.0 (1.9-4.0) LVEF 62% LVIDd 4.1 (3.5-5.7) LVIDs 2.8 (2.0-3.5) %FS 33% LVPWd 1.1 (0.6-1.2) Ao Diam 3.1 (2.0-3.7) 2 DIMENSIONAL ASSESSMENT: RIGHT ATRIUM: NORMAL LEFT ATRIUM: NORMAL RIGHT VENTRICLE: NORMAL LEFT VENTRICLE: NORMAL TRICUSPID VALVE: NORMAL MITRAL VALVE: NORMAL PULMONIC VALVE: NORMAL AORTIC VALVE: NORMAL PERICARDIAL EFFUSION: NONE AORTIC ROOT: NORMAL LEFT VENTRICULAR WALL MOTION: NORMAL DOPPLER/COLOR FLOW: MILD TRICUSPID REGURGITATION COMMENTS: NORMAL LEFT VENTRICULAR EJECTION FRACTION 60-65%. NORMAL WALL MOTION. MILD TRICUSPID REGURGITATION TECHNOLOGIST: ELVIA CONWAY
--- NOTE | 2021-11-18 17:37 | EKG ---
Test Date: 2021-11-15 Test Time: 14:31:53 Phthalic Acid Purifier: KIANNA MEASUREMENT RESULTS: Intervals: Rate: 76 [place]: 220 QRSD: 106 QT: 384 QTc: 432 [place]: P: 58 [place]: 220 QRS: -12 T: 17 INTERPRETIVE STATEMENTS: Sinus rhythm with marked sinus arrhythmia with 1st degree AV block Incomplete right bundle branch block Moderate voltage criteria for LVH, may be normal variant Borderline ECG No previous ECG available for comparison Electronically Signed On 11-18-21 17:32:01 CDT by Gregor Vance
== END 2021-11-16 18:54 | disposition home or self-care (01) | DRG 178 ==
LOC: ER 13:39 → ERHOLD 17:05 → 4TH 19:53
PROVIDERS: ADMIT Internal Medicine; ATTEND Internal Medicine
DX: U07.1 COVID-19 (principal); M62.82 Rhabdomyolysis; N17.9 Acute kidney failure, unspecified; J20.8 Acute bronchitis due to other specified organisms; I10 Essential (primary) hypertension; E78.5 Hyperlipidemia, unspecified; K21.9 Gastro-esophageal reflux disease without esophagitis; E86.9 Volume depletion, unspecified; E66.9 Obesity, unspecified; Z68.31 Body mass index [BMI] 31.0-31.9, adult; I95.9 Hypotension, unspecified; E87.6 Hypokalemia; R77.8 Other specified abnormalities of plasma proteins; Z79.890 Hormone replacement therapy; Z85.46 Personal history of malignant neoplasm of prostate
CPT/HCPCS: 36415; 70450; 71045; 80048; 80053; 80061; 80076; 81003; 81015; 82550; 82570; 83735; 83880; 84300; 84443; 84484; 85025; 85610; 86140; 87804; 93005; 93306; 96361; 96365; 96366; 96372; 99285; J1650; J2930; J3480; J3490; J7030; J7120; U0003